=== PATIENT | female | born 1955 | race Two or more races ===

== ENCOUNTER 2020-09-13 12:30 | Inpatient (IN) | payer OTHER ==
[~2020-09-13] VITALS: Ht 165.1 cm; Wt 81.6 kg
[2020-09-13] MEDS ORDERED: AVAPRO300 MG PO (16:56)
[2020-09-13] MEDS ORDERED: [UNRECOGNIZED DRUG - OTHER] PO (16:56)
[2020-09-13] MEDS ORDERED: [UNRECOGNIZED DRUG - OTHER] (16:57)
[2020-09-13] MEDS ORDERED: [UNRECOGNIZED DRUG - OTHER] PO (16:58)
[2020-09-13] MEDS ORDERED: LASIX20 MG PO (16:58)
[2020-09-13] MEDS ORDERED: GABAPEN PO (16:59)
[2020-09-13] MEDS ORDERED: PREDNISONE PO (16:59)
[2020-09-13] MEDS ORDERED: PRILOSEC OTC20 MG PO (17:00)
[2020-09-13] MEDS ORDERED: SYNTHROID125 MCG PO (17:00)
[2020-09-13] MEDS ORDERED: SINGULAIR10 MG PO (17:00)
[2020-09-13] MEDS ORDERED: TOPROL XL100 M1 PO (17:01)
[2020-09-13] MEDS ORDERED: TROMBONEX CAPS1 EACH PO (17:01)
[2020-09-13] MEDS ORDERED: [UNRECOGNIZED DRUG - OTHER] PO (17:02)
[2020-09-13] MEDS ORDERED: LIPITOR PO (17:02)
[2020-09-13] MEDS ORDERED: HORIZANT300 MG PO (17:03)
[2020-09-13] MEDS ORDERED: [UNRECOGNIZED DRUG - OTHER] PO (17:04)
[2020-09-18] MEDS ORDERED: MEDROLPACK PO (11:20)
[2020-09-18] MEDS ORDERED: DIAZEPAM5 MG PO (11:20)
[2020-09-18] MEDS ORDERED: PERCOCET 5-3251 EACH PO (11:20)
[2020-09-18] MEDS ORDERED: AMOX-CLAV 875-1 EACH PO (11:20)
[2020-09-18] MEDS ORDERED: NEURONTIN800 MG PO (11:20)
[2020-09-18] MEDS ORDERED: COLACE100 MG PO (11:20)
== END 2020-09-20 18:27 | DRG 460 ==
LOC: O/R 09-18 10:46 → SURH 09-18 12:30 → PED 09-18 18:21
PROVIDERS: ADMIT Orthopaedic Surgery Orthopaedic Surgery of the Spine; ATTEND Orthopaedic Surgery Orthopaedic Surgery of the Spine
PROC: 0SG30AJ Fusion of Lumbosacral Joint with Interbody Fusion Device, Posterior Approach, Anterior Column, Open Approach (ICD-10-PCS; 2020-09-18)
PROC: 07DR3ZZ Extraction of Iliac Bone Marrow, Percutaneous Approach (ICD-10-PCS; 2020-09-18)
PROC: 00NY0ZZ Release Lumbar Spinal Cord, Open Approach (ICD-10-PCS; principal; 2020-09-18 14:00)
DX: M48.062 Spinal stenosis, lumbar region with neurogenic claudication (principal); M43.17 Spondylolisthesis, lumbosacral region; E03.8 Other specified hypothyroidism; I12.9 Hypertensive chronic kidney disease with stage 1 through stage 4 chronic kidney disease, or unspecified chronic kidney disease; N18.9 Chronic kidney disease, unspecified